=== PATIENT | female | born 1960 | race Caucasian/White ===

== ENCOUNTER 2019-10-04 09:45 | Emergency (ER) | payer BC, SELFPAY ==
--- NOTE | 2019-10-04 09:49 | ED.EAR ---
HPI - Ear Problem General Chief complaint: Upper Respiratory Infection Stated complaint: ear pain Time Seen by Provider: 10/04/19 10:01 Source: patient and RN notes reviewed Mode of arrival: ambulatory Limitations: no limitations History of Present Illness HPI Narrative: 59-year-old female presents with concern for left ear pain, drainage. She reports mild rhinorrhea, denies cough, shortness of breath, nasal congestion, sore throat, cough, fever. Reports pain for 2 days, drainage started today. MD Complaint: ear pain and ear discharge Location: left ear Related Data Home Medications Medication Instructions Recorded Confirmed atorvastatin 20 mg PO DAILY 10/04/19 10/04/19 levothyroxine 150 mcg PO DAILY 10/04/19 10/04/19 Allergies Allergy/AdvReac Type Severity Reaction Status Date / Time lisinopril AdvReac Unknown cough Verified 10/04/19 10:08 Review of Systems Review of Systems: Narrative: CONSTITUTIONAL: Denies malaise, chills, sweats, or fever. EYES: Denies visual changes, redness, or discharge. ENT: Reports rhinorrhea, left otalgia and drainage. Denies congestion, sinus pain, and sore throat. CARDIOVASCULAR: Denies chest pain, palpitations, or edema. RESPIRATORY: Denies cough or dyspnea. GASTROINTESTINAL: Denies abdominal pain, nausea, vomiting, diarrhea SKIN: Denies rash or itching. MUSCULOSKELETAL: Denies myalgia. NEUROLOGIC: Denies headache. All systems reviewed & are unremarkable except as noted in HPI and below PMFSH Comments At time of signature, agree with nursing past medical, surgical, social and family history. There is no relevant family history pertinent to the presenting complaint Exam Narrative: Exam Narrative: GENERAL: Well-appearing, well-nourished, and in no acute distress. HEAD: Normocephalic EYES: PERRLA, conjunctivae clear ENT: Nares clear, turbinates mildly erythematous, clear discharge. Mucous membranes moist. TM pearly sheridan with dull sharp reflex bilaterally; left auditory canal erythematous with yellow discharge and tragal tenderness. Oropharynx not erythematous without lesions. Tonsils not enlarged and without exudate, no drooling, no hoarseness, no trismus, uvula midline. NECK: Supple. No lymphadenopathy CHEST: Clear to auscultation, breath sounds equal. No wheezing, rhonchi, rales, or stridor. No respiratory distress, speaks in full sentences. HEART: Regular rate and rhythm. No murmur heard. SKIN: Warm, dry, no rash. NEURO: Alert and oriented x3. PSYCH: Normal mood and affect Course Course Emergency Course: Patient is aware of diagnosis, understands and agrees to treatment plan. Anticipatory guidance given. Patient agrees to follow-up as directed and is aware of reasons to seek care at the emergency department. Portions of this record may have been created with voice recognition software Vital Signs Vital signs: Reviewed. Medical Decision Making MDM Narrative Medical decision making narrative: Differential diagnosis considered: Strep pharyngitis, allergic rhinitis, upper respiratory tract infection, sinusitis, rhinosinusitis, nasopharyngitis. viral pharyngitis, otitis media, otitis externa, pneumonia, bronchitis, viral cough syndrome, viral syndrome, and influenza. Exam findings show no acute concerns or changes; patient is non-toxic appearing and is in no distress. Patient is appropriate for outpatient treatment and follow-up. Critical Care Time Critical Care Time Critical Care Time: No Discharge Plan Discharge Clinical Impression: Otitis externa Qualifiers: Otitis externa type: unspecified type Chronicity: acute Laterality: left Qualified Code(s): H60.502 - Unspecified acute noninfective otitis externa, left ear Patient Disposition: Home, Self-Care Condition: Stable Instructions: Otitis Externa (ED) Additional Instructions: 1) Please follow-up with your primary care doctor in the next 1-2 days if you continue to have symptoms or if you have new symptoms. 2) If you hav
[2019-10-04 09:55] VITALS: BP 131/77; PULSE 89; RESP 18; TEMP 36.7; O2SAT 97
== END 2019-10-04 10:20 | disposition home or self-care (01) ==
PROVIDERS: Emergency Provider Nurse Practitioner; PCP Family Medicine
DX: H60.502 Unspecified acute noninfective otitis externa, left ear (principal); E78.00 Pure hypercholesterolemia, unspecified; I10 Essential (primary) hypertension; E03.9 Hypothyroidism, unspecified
CPT/HCPCS: 99213; G0463

== ENCOUNTER 2020-05-03 01:47 | Outpatient (CLI) | payer BC, SELFPAY ==
[2020-05-03 21:18] LABS: SARS-CoV-2 RNA PCR Negative
== END 2020-05-03 01:48 | disposition home or self-care (01) ==
LOC: ANHCOVIDDT 01:47
PROVIDERS: PCP Family Medicine; Visit Provider Obstetrics & Gynecology
DX: Z01.812 Encounter for preprocedural laboratory examination (principal); Z20.828 Contact with and (suspected) exposure to other viral communicable diseases
CPT/HCPCS: 87635; C9803; U0003

== ENCOUNTER 2020-05-07 01:17 | Day surgery (SDC) | payer BC, SELFPAY ==
[2020-04-23 15:15] VITALS: BMI 49.8
--- NOTE | 2020-05-06 12:44 | WPDANESEPPF ---
Anes - Initial Pre Proc Eval Procedure: Operation Date: 05/07/20 07:30 Proposed Procedures p Hysteroscopy, Cervical Dilation - Shakila Pruett MD Date/Time: 05/06/20 12:44 Surgeon: Shakila Pruett MD Pre Op Diagnosis: Stenosis Of Cervix Patient Data Age: 59 Gender: F Height: 1.65 m Weight: 136 kg Allergies Allergy/AdvReac Type Severity Reaction Status Date / Time lisinopril AdvReac Intermediate cough Verified 05/07/20 06:18 Home Medications Medication Instructions Recorded Confirmed Type atorvastatin 20 mg PO DAILY 10/04/19 05/07/20 History levothyroxine 150 mcg PO DAILY 10/04/19 05/07/20 History celecoxib 100 mg PO DAILY 04/23/20 05/07/20 History cetirizine 10 mg PO DAILY 04/23/20 05/07/20 History cyclobenzaprine 10 mg PO DAILY 04/23/20 05/07/20 History fluticasone furoate-vilanterol 1 inh INHALATION DAILY 04/23/20 05/07/20 History [Breo Ellipta] fluticasone propionate 1 spray INTRANASAL DAILY 04/23/20 05/07/20 History gabapentin 4,100 mg PO TID PRN 04/23/20 05/07/20 History hydrocodone-acetaminophen 1 tablet PO BID PRN 04/23/20 05/07/20 History losartan 50 mg PO DAILY 04/23/20 05/07/20 History Patient hx anesthesia problems: none Family hx anesthesia problems: none PMFSH Past Medical History Medical History (Updated 05/06/20 @ 12:42 by Hector Veloz DO) Hyperlipidemia Hypertension Hypothyroidism HUMBERTO (obstructive sleep apnea) CPAP Social History Social History Smoking status: Never smoker Alcohol intake: never Substance use: never Substance use type: does not use Living arrangements: with family Gender identity (if verbalized by the patient): Female Spiritual care concerns: No Anes - Eval Final PreProcedure Day of Procedure 05/06/20 12:44 Patient weight: morbidly obese Heart: regular rate and rhythm Lungs: clear to auscultation and normal air movement Airway: Mallampati scale class II Neurological: alert and oriented Last oral intake: >/= 8 hours ASA classification: III Emergent: no Anesthetic plan: proceed Anesthesia type and monitoring: general GIVS and standard monitoring Informed Consent: The patient's anesthetic plan and its attendant risks and benefits were discussed with the patient/family/POA. Questions were solicited and answers provided to the satisfaction of the patient/family/POA.
[2020-05-07 06:26] VITALS: BP 145/80; PULSE 92; RESP 14; TEMP 36.5; O2SAT 100
[2020-05-07] MEDS: ACETAMINOPHEN 500 MG TABLET 1000 MG PO (06:34)
[2020-05-07] MEDS: LACTATED RINGERS 1,000 ML 30 ML IV CONT (06:51)
--- NOTE | 2020-05-07 07:23 | WPDHPUPDATE1 ---
History and Physical Update Update Date/Time: 05/07/20 07:23 History and Physical has been reviewed, including an updated exam of the patient. There are NO changes in the patient's condition. Risks, benefits, and alternatives have been discussed and questions answered. Patient agrees to proceed with procedure.
--- NOTE | 2020-05-07 07:29 | PM.IMHP ---
H&P: HPI History of Present Illness Date/Time: 05/07/20 07:29 Chief complaint: Stenosis Of Cervix Narrative: Namrata Monzon is a 59 year old female Who had atypical glandular cells of undetermined significance on a Pap smear. Should her cervix is stenotic. we Agreed to perform hysteroscopy D&C with dilation of the cervix. She understands that this procedure has risks. She understands that injuries may occur. She understands the surgical edges consult in hospitalization, more surgery, and severe illness. She understands risk of hemorrhage and infection. Review of Systems Constitutional: Constitutional: Reports no additional constitutional complaints, Denies fatigue, Denies headache(s), Denies lethargy and Denies weakness Eyes: Eyes: Reports no additional eye complaints, Denies blurry vision and Denies photophobia ENT: Reports as per HPI, Denies headache(s) and Denies neck pain Cardiovascular: Cardiovascular: Denies chest pain, Denies diaphoresis, Denies leg edema, Denies palpitations and Denies dyspnea Respiratory: Respiratory: Denies hemoptysis, Denies dyspnea and Denies wheezing Gastrointestinal: Gastrointestinal: Denies abdominal pain, Denies melena, Denies bloating, Denies hematochezia, Denies nausea and Denies vomiting Genitourinary: Genitourinary: Reports no additional female genitourinary complaints Musculoskeletal: Musculoskeletal: Denies joint swelling, Denies neck pain, Denies numbness and Denies stiffness Neurologic: Denies Abnormal speech present, Denies confusion, Denies headache(s), Denies numbness and Denies weakness Psychiatric: Psychiatric: Denies anxiety, Denies confusion, Denies depression, Denies homicidal ideation and Denies suicidal ideation Endocrine: Endocrine: Denies fatigue and Denies palpitations Allergic/Immunologic: Allergic/Immunologic: Denies wheezing PMF Past Medical History Medical History (Updated 05/07/20 @ 07:31 by Shakila Pruett MD) Hyperlipidemia Hypertension Hypothyroidism HUMBERTO (obstructive sleep apnea) CPAP Social History Social History Smoking status: Never smoker Alcohol intake: never Substance use: never Substance use type: does not use Living arrangements: with family Gender identity (if verbalized by the patient): Female Spiritual care concerns: No Meds Home Medications and Allergies Home Medications Medication Instructions Recorded Confirmed Type atorvastatin 20 mg PO DAILY 10/04/19 05/07/20 History levothyroxine 150 mcg PO DAILY 10/04/19 05/07/20 History celecoxib 100 mg PO DAILY 04/23/20 05/07/20 History cetirizine 10 mg PO DAILY 04/23/20 05/07/20 History cyclobenzaprine 10 mg PO DAILY 04/23/20 05/07/20 History fluticasone furoate-vilanterol 1 inh INHALATION DAILY 04/23/20 05/07/20 History [Breo Ellipta] fluticasone propionate 1 spray INTRANASAL DAILY 04/23/20 05/07/20 History gabapentin 4,100 mg PO TID PRN 04/23/20 05/07/20 History hydrocodone-acetaminophen 1 tablet PO BID PRN 04/23/20 05/07/20 History losartan 50 mg PO DAILY 04/23/20 05/07/20 History Allergies Allergy/AdvReac Type Severity Reaction Status Date / Time lisinopril AdvReac Intermediate cough Verified 05/07/20 06:18 Vital Signs Vital Signs - 24 hr 05/07/20 06:26 Temperature 97.7 F Pulse Rate 92 Respiratory Rate 14 Blood Pressure 145/80 H Pulse Oximetry 100 Exam Const: General: healthy appearing, comfortable and no acute distress; No confusion Orientation/consciousness: No confusion Eyes: Direct Ophthalmoscopy: No photophobia Resp: Auscultation: clear to auscultation bilaterally, no rales, no rhonchi and no wheezes Cardio: Rate: regular rate Heart sounds: no click, no murmurs and no rubs GI: Inspection: non-distended GI Palp: No abdominal tenderness Auscultation: normal bowel sounds Neuro: General: No confusion Speech: No Abnormal speech present Extrem: General: normal to inspection, no pedal edema and no calf tenderness Assessme
[2020-05-07] MEDS: LIDOCAINE HCL 1% LOCAL INJ 20 ML VIAL 10 ML INFILTRATE (07:37)
[2020-05-07 08:29] VITALS: BP 150/91; PULSE 92; RESP 16; O2SAT 98
[2020-05-07 09:00] VITALS: BP 153/80; PULSE 87; RESP 16
--- NOTE | 2020-05-07 09:04 | PM.PROC ---
Procedure Note - Detailed Date of procedure: 05/07/20 Pre-op diagnosis: Stenosis Of Cervix Abnormal uterine bleeding Post-op diagnosis: same Procedure performed: Hysteroscopy D&C , endocervical curettage, cervical dilation Description of procedure: The patient was taken the operating room. She was prepped and draped in the dorsal lithotomy position after induction of mac anesthesia. A speculum was placed in the vagina. The cervix grasped with a tenaculum. The cervix was injected at 3 and 9:00 a.m. with 1% lidocaine. The cervix was stenotic. The cervix had to be dissected open. Stay sutures were placed at 3 and 9:00 a.m.. The central portion of the cervix was dissected using Metzenbaum scissors to find the intracervical canal. Ultimately was found. At that point the cervix was dilated. Cervix was dilated up to 1 cm. The hysteroscope was inserted the intrauterine cavity and the above findings were noted. A Kevorkian curette was used to curettage the endocervix. A medium-size curette was then used to curettage all surfaces within the endometrial cavity. The Cervical and endometrial curettings were collected on a Telfa. There were submitted to the pathology department. Hysteroscope was reinserted the intrauterine cavity to re-examine the endometrial surfaces. The hysteroscope was withdrawn. sutures were placed at 3 and 9:00 a.m. on the cervix to keep it open. A Interceed was placed in the endocervical canal. The tenaculum was removed. The speculum was removed. The patient tolerated the procedure well. She was taken recovery room stable condition. Sponge lap needle counts were correct x2. Anesthesia: MAC Surgeon: Shakila Pruett MD Estimated blood loss (mL): 75 Drains: No Packing: No Pathology: yes Complications: No immediate complications Condition: stable Disposition: PACU Findings: There was normal appearing endometrium. There was a stenotic cervix that was intensely adherent. There was normal appearing vulva vagina and cervix.
== END 2020-05-07 09:20 | disposition home or self-care (01) ==
PROVIDERS: PCP Family Medicine; Visit Provider Obstetrics & Gynecology
PROC: 0U5B8ZZ Destruction of Endometrium, Via Natural or Artificial Opening Endoscopic (ICD-10-PCS; CPT 58563; principal; 2020-05-07 07:30)
DX: N88.2 Stricture and stenosis of cervix uteri (principal); N93.9 Abnormal uterine and vaginal bleeding, unspecified; I10 Essential (primary) hypertension; E78.5 Hyperlipidemia, unspecified; E03.9 Hypothyroidism, unspecified; G47.33 Obstructive sleep apnea (adult) (pediatric); E66.01 Morbid (severe) obesity due to excess calories; Z68.42 Body mass index [BMI] 45.0-49.9, adult
CPT/HCPCS: 58558; 88305; A9270; J2250; J2704; J3010; J7030; J7120